=== PATIENT | male | born 1990 | race Caucasian/White ===

== ENCOUNTER 2016-10-08 14:07 | Emergency (ER) | payer OTHER ==
[2016-10-08] MEDS ORDERED: LIDOCAINE HCL/EPINEPHRINE 30 ML VIAL IJ ONE (14:13)
--- NOTE | 2016-10-08 14:45 | ERNOTE ---
Medical Problem HPI - Narrative Date of Service: 10/08/16 - General Chief Complaint: Laceration Time Seen by Provider: 10/08/16 14:29 Source: patient Exam Limitations: no limitations - Immun/Allergies/Home Medications Immunizations: IMMUNIZATION HX Immunizations Up to Date Yes History of Influenza Vaccine No Hx Pneumococcal Vaccination No Allergies/Adverse Reactions: Allergies No Known Allergies Allergy (Verified 10/08/16 14:15) Home Medications: HOME MEDICATIONS Apixaban [Eliquis] 5 mg PO BID 06/29/16 [Last Taken Unknown] Cephalexin [Keflex] 1 cap PO BID #14 capsule 10/08/16 [Last Taken Unknown] - History of Present History Narrative: Presents with c/o left leg laceration. Injury inflicted by a runaway chainsaw. Reports excessive bleeding, finally controlled by pressure [employer]. Severity: moderate Review of Systems - Review of Systems Constitutional: Present: no symptoms reported EYE: Present: no symptoms reported ENT: Present: no symptoms reported Respiratory: Present: no symptoms reported Cardiology: Present: no symptoms reported Gastrointestinal/Abdominal: Present: no symptoms reported Genitourinary: Present: no symptoms reported Musculoskeletal: Present: See HPI Skin: Present: See HPI Neurological: Present: no symptoms reported Endocrine: Present: no symptoms reported Hematologic/Lymphatic: Present: no symptoms reported Psych: Present: no symptoms reported All Other Systems: All systems neg except as marked - Patient's Past Medical History Patient History - Medical: Other Patient History - Cardiac/Respiratory: No pertinent hx Patient History - Cancer: No Hx of Cancer Patient History - Surgical Procedures: Other Patient History - Other: None - Social History Living Situations: home Abuse History: No History of abuse Psych History: No pertinent hx Smoking Status: Never smoker Alcohol Use: occasionally Drug Use: none - Immunizations Immunizations Up to Date: Yes Hx Pneumococcal Vaccination: No History of Influenza Vaccine: No Physical Exam - Physical Exam General Appearance: Present: wd/wn, alert, no apparent distress Respiratory: Present: no respiratory distress, normal breath sounds, no accessory muscle use, chest nontender, lungs clear Cardiovascular/Chest: Present: regular rate, rhythm, no murmur Extremity Exam: Present: normal except - - 8 CM laceration, through dermal layer , on proximal aspect of his anterior left leg. Bleeding controlled by pressure. Neurological Exam: Present: alert, oriented Skin Exam: Present: normal color, warm/dry ED Progress - Vital Signs Patient's Vital Signs:: I have reviewed the patient's vital signs. Vital Signs: Vital Signs 10/08/16 14:10 Temperature 37.1 C Pulse Rate 98 Respiratory 16 Rate Blood Pressure 153/83 O2 Sat by Pulse 95 Oximetry - Progress/Reassessment Chief Complaint: Laceration Progress:: Improved Procedures Left Upper Anterior Leg Date and Time: 10/08/2016 @ 14:40 Body Front/Back Adult: 1 - 8 cm dermal laceration Anesthesia: Lidocaine w/ Epi Length of Repair/Wound (cm): 8 Wound's Depth/Shape: superficial, linear Wound Explored: clean Wound Intervention: irrigated w/saline Distal NVT: neuro/vasc intact Wound Repaired With: sutures Suture Size/Type: nylon - 2-0 Number of Sutures: 16 Layer Closure: Simple Wound Dressing: sterile dressing applied Complications: Pt orquidea procedure well Departure - Departure Clinical Impression: Laceration of left leg Qualifiers: Encounter type: initial encounter Qualified Code(s): S81.812A - Laceration without foreign body, left lower leg, initial encounter Disposition: Home self-care Condition: Good Instructions: Laceration Care, Adult, [id number] Additional Instructions: Keep wound clean and dry. Follow up in 5 days for wound check, and in 10 days for suture removal. Take antibiotic as prescribed. Prescriptions: Cephalexin [Keflex] 1 cap PO BID #14 capsule
--- OUTSIDE RECORDS SUMMARY | 2016-10-08 14:47 | XMS REPORT | Continuity of Care Document ---
:1990 Author Organization [facility] [place] [address] Care Team Providers Name Role Phone Unavailable Primary Care Provider Unavailable Source Comments This disclosure is being made pursuant to the [employer] program and maynot contain all information available regarding this patient.[facility] Active Allergies and Adverse Reactions Not on File Current Medications Be aware that medications may not be up to date as of this document. Alwaysverify current medications with the patient. Not on file Active Problems Not on file Social History Tobacco Use Types Packs/Day Years Used Date Never Assessed Plan of Care Health Maintenance Due Date Last Done Comments Retired-Pertussis Vaccine Adult 02/16/2007 Retired-Tetanus Vaccine Adult 02/16/2007 Retired-INFLUENZA VACCINE 03/26/2015 Results from Last 3 Months Not on file
--- OUTSIDE RECORDS SUMMARY | 2016-10-08 14:48 | XMS REPORT | Continuity of Care Document ---
:1990 Author Organization [facility] ([facility]) Address [address] [place] [address] Phone [phone] Care Team Providers Name Role Phone Provider, No-Primary Care Primary Care Provider Unavailable Source Comments This disclosure is being made pursuant to the Care Everywhere program, applicable federal and state laws, and may not contain all informaitonavailable regarding this patient.[facility] ([facility]) Active Allergies and Adverse Reactions No Known Allergies Current Medications Prescription Sig. Disp. Refills Start Date End Date Status docusate 100 mg Take 1 Cap by mouth 2 100 Cap 3 12/13/2011 Active capsule times daily as needed. Indications: Constipation bacitracin topical apply topically 2 3 Tube 3 12/13/2011 Active ointment times daily. Indications: abrasions HYDROcodone-acetamino Take 1-2 Tabs by 40 Tab 0 12/13/2011 Active phen 5-325 mg per mouth every 4 hours tablet as needed. Indications: Pain sennosides 8.6 mg Take 1 Tab by mouth 2 100 Tab 2 12/13/2011 Active tablet times daily. Indications: Constipation White Petrolatum 1 Each daily. 10 Each 1 12/13/2011 Active (VASELINE PETROLATUM Indications: Arm GAUZE) Bndg abrasion wound Active Problems Problem Noted Date Left elbow pain 12/12/2011 Immunizations Name Dates Previously Given Next Due Tdap 12/12/2011 Social History Tobacco Use Types Packs/Day Years Used Date Never Smoker Last Filed Vital Signs Vital Sign Reading Time Taken Blood Pressure 120/57 12/13/2011 7:54 AM CDT Pulse 73 12/13/2011 7:54 AM CDT Temperature 36.9 C (98.4 F) 12/13/2011 7:54 AM CDT Respiratory Rate 16 12/13/2011 7:54 AM CDT Height 1.753 m (5' 9") 12/12/2011 10:40 PM CDT Weight 99.791 kg (220 lb) 12/12/2011 10:40 PM CDT Body Mass Index 32.47 12/12/2011 10:40 PM CDT Oxygen Saturation 98% 12/13/2011 7:54 AM CDT Plan of Care Health Maintenance Due Date Last Done Comments Hepatitis B Vaccine (1 of 3 - Primary Series) 1990 Lipid Disorder Screening 02/16/2006 MMR Vaccine 02/16/2006 Varicella Vaccine (1 of 2 - Adult - No Evidence of 02/16/2006 Immunity) Influenza Vaccine: Seasonal (#1) 02/24/2016 Td Vaccine 12/11/2021 12/12/2011 Tdap Vaccine Completed 12/12/2011 Results from Last 3 Months Not on file
[2016-10-08 16:08] VITALS: BP 116/71
== END 2016-10-08 15:30 | disposition home or self-care (01) ==
LOC: ER 14:07
PROC: 0JQM0ZZ Repair Left Upper Leg Subcutaneous Tissue and Fascia, Open Approach (ICD-10-PCS; principal; 2016-10-08)
DX: S81.812A Laceration without foreign body, left lower leg, initial encounter (principal); W29.3XXA Contact with powered garden and outdoor hand tools and machinery, initial encounter

== ENCOUNTER 2017-04-20 16:21 | Emergency (ER) | payer OTHER ==
[2017-04-20 17:49] LABS: Hematocrit 42.2 % (42.0-52.0); Hemoglobin 14.8 gm/dL (13.5-18.0); Mean Cell Volume 88.5 fl (78-100); Mean Corpuscular Hgb Conc 35.1 g/dl (32-36); Mean Platelet Volume 10.4 fl (6.0-9.5); Neutrophil # 3.9 K/mm3 (1.3-6.0); Neutrophil % 62.2 % (42-75.0); Platelet Count 190 K/mm3 (150-450); Red Blood Count 4.77 M/mm3 (4.7-6.0); Red Cell Distribution Width 12.1 % (11.5-14.0); White Blood Count 6.3 K/mm3 (4.0-10.5)
[2017-04-20 18:01] LABS: Prothrombin Time (Patient) 10.9 Seconds (9.4-11.4)
[2017-04-20 18:02] LABS: INR 1.05 INR (0.90-1.10); Partial Thrombolplastin Time 29.2 Seconds (24-32)
[2017-04-20 18:10] LABS: ALT 63 U/L (19-67); AST 60 U/L (0-48); Albumin * 4.1 gm/dl (3.4-5.0); Alkaline Phosphatase * 78 U/L (50-170); Anion Gap 13.9 mmol/L (6.8-13.8); BUN/Creatinine Ratio 16.2 (9.0-21.6); Bilirubin, Total 0.4 mg/dL (0.0-1.1); Blood Urea Nitrogen 18 mg/dL (6-23); Ca. Corrected For Albumin 8.8 mg/dL (8.4-10.2); Calcium * 9.2 mg/dL (7.9-10.9); Carbon Dioxide 26.2 mmol/L (24-32.6); Chloride 104 mmol/L (97-106); Glucose * 87 mg/dL (70-110); Potassium 4.1 mmol/L (3.4-4.6); Sodium 140 mmol/L (132-142)
[2017-04-20 18:11] LABS: Troponin I Less than 0.017 ng/ml (0.00-0.10)
--- NOTE | 2017-04-20 19:26 | ERNOTE ---
Headache ER HPI - Narrative Date of Service: 04/20/17 - General Presenting Symptoms: headache Time Seen by Provider: 04/20/17 16:33 Source: patient Exam Limitations: no limitations - Immun/Allergies/Home Medications Immunizations: IMMUNIZATION HX Immunizations Up to Date Yes History of Influenza Vaccine No Hx Pneumococcal Vaccination No Allergies/Adverse Reactions: Allergies No Known Allergies Allergy (Verified 10/08/16 14:15) Home Medications: HOME MEDICATIONS Apixaban [Eliquis] 5 mg PO BID 06/29/16 [Last Taken Unknown] - History of Present Illness Narrative: Patient presents to the ED for l left parietal BARRAGAN. This has not been bad, usually 1/10 but it has been nagging for 5-6 days. no trauma. He is on blood thinners and was concerned. He has had some tingling in his face in the past but none acutely. No current N/T/W. No severe pain, no thunderclap onset. No CO exposure. no fever. 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 He relates frequent brief chest discomfort that comes and goes but has been going on off and on for weeks. no CP now. no acute SOB. No other complaints. no exertional CP, no pleuritic CP. Context Headache: Absent: CO exposure, meningitis exposure, recent head injury > 24 hrs Quality: Absent: sharp Severity Maximum: Present: mild Severity-Currently: Present: mild Modifying Factors - (Improves): Reports: other - nothing Modifying Factors - (Worsens): Reports: other - nothing Associated Symptoms: Denies: fever/chills, nausea, vomiting, nasal congestion, weakness, vision changes, light-headedness, loss of consciousness, neck pain/ stiffness Exacerbated by:: Reports: other - nothing Prior Treament: Denies: recently seen Review of Systems - Review of Systems Constitutional: Absent: fever EYE: Absent: vision changes ENT: Absent: sore throat Respiratory: Present: See HPI Cardiology: Present: See HPI Gastrointestinal/Abdominal: Absent: abdominal pain Neurological: Absent: weakness - Patient's Past Medical History Patient History - Medical: Other Patient History - Cardiac/Respiratory: No pertinent hx Patient History - Cancer: No Hx of Cancer Patient History - Surgical Procedures: Other Patient History - Other: None - Social History Living Situations: home Abuse History: No History of abuse Psych History: No pertinent hx Alcohol Use: none Drug Use: none - Immunizations Immunizations Up to Date: Yes Hx Pneumococcal Vaccination: No History of Influenza Vaccine: No Physical Exam - Physical Exam General Appearance: Present: alert, no apparent distress Head Exam: Present: normal inspection, no evidence of injury Eye Exam: Normal inspection: bilateral, PERRL: bilateral Ears, Nose, Throat: Present: normal ENT inspection, normal pharynx. Absent: pharyngeal erythema Neck: Present: normal inspection, nontender, supple Respiratory: Present: no respiratory distress, normal breath sounds, no accessory muscle use, lungs clear Cardiovascular/Chest: Present: regular rate, rhythm, normal peripheral pulses Gastrointestinal/Abdominal: Present: normal bowel sounds, nontender, soft Back Exam: Present: normal range of motion Extremity Exam: Present: normal inspection Neurological Exam: Present: alert, normal mood/affect, no motor/sensory deficits , signaler II-XII nml as tested, other - NIH - 0. Absent: motor weakness Skin Exam: Present: normal color, warm/dry ED Progress - Results and Orders Patient's Lab Results:: I have reviewed the patient's lab results. - Vital Signs Patient's Vital Signs:: I have reviewed the patient's vital signs. Vital Signs: Vital Signs 04/20/17 04/20/17 04/20/17 16:25 16:50 17:20 Temperature 36.2 C L 36.3 C L Pulse Rate 101 H 99 89 Respiratory 12 Rate Blood Pressure 149/98 147/89 138/90 O2 Sat by Pulse 96 96 98 Oximetry 04/20/17 04/20/17 04/20/17 17:50 18:10 18:20 Temperature Pulse Rate 94 97 95 Respiratory 16 Rate Blood Pressure 142/87 143/86 151/90 O2 Sat by Pulse 98 98 95 Oximetry 04/20/17 18:50 Temperature Pulse Rate 89 Respiratory Rate Blood Pressure 147/85 O2 Sat by Pulse 98 Oximetry - EKG EKG: NSR EKG read: Interp. by me EKG Comments: NSR rate 88. Non-specific. no evidence of acute infarct. no STEMI. - X-Ray X-Ray #1 X-Ray: chest Interpretation: Interp. by me X-ray Comments: I reviewed official radiology report - CT/Ultrasound CT/Ultrasound Narrative: I reviewed official CT report - Progress/Reassessment Chief Complaint: Headache Progress Note-Subjective: 04/20/17 19:[address] negative. This is 1/10 pain. nothing to suggest meningitis or SAH, nothing would indicate need for LP or emergemtn MRI. nothing clinically to suggest stroke. He also had some vague chest Sx. Nothing clinically to suggest ACS or aortic dissection. He declines CT chest, he understands I cannot r/o new PE but he does not want the CT. he understnds risks and benefits , declines study. He wishes to go home. I discussed warning signs and reasons to return as well as the need for close f/u. Departure Clinical Impression: Headache - Departure Disposition: Home self-care Condition: Stable Additional Instructions: Rest. Fluids. Continue your blood thinner. Follow-up with your doctor in the next 2-3 days for a re-check. Return here if you change your mind about having the CT scan of your chest, develop trouble breathing, pain, weakness or if your condition worsens or changes in any way.
[2017-04-20 19:38] VITALS: BP 139/85
== END 2017-04-20 19:22 | disposition home or self-care (01) ==
LOC: ER 16:21
DX: R51 Headache (principal); Z79.01 Long term (current) use of anticoagulants